=== PATIENT | male | born 1965 | race Caucasian/White ===

== ENCOUNTER 2018-06-08 22:05 | Emergency (ER) | payer MEDICAID ==
[~2018-06-08] VITALS: Ht 182.9 cm; Wt 81.7 kg
[~2018-06-08 22:05] MED LIST: ACETAMINOPHEN-120 ML PO; AVELOX ABC PAC400 MG PO; BACTRIM DS TAB1 EACH PO; HYDROCODON-ACE1 EAC7 PO; NOHOMEMEDICATIONS; NORCO 5-325 TA1 EACH PO; PROAIR HFA8.5 GM IH; TRIAMCINOLONE A80 G2 TOP; ZPAK PO
[2018-06-08 22:11] VITALS: BP 125/82
[2018-06-08] MEDS ORDERED: LIDOCAINE VISC100 ML SWISH&SPIT (22:16)
[2018-06-08] MEDS ORDERED: CLEOCIN HCL150 MG PO (22:16)
[2018-06-08] MEDS ORDERED: ACETAMINOPHEN-1 EAC1 PO (22:16)
== END 2018-06-08 22:27 | disposition home or self-care (01) ==
LOC: M.ERS 22:05
DX: K04.7 Periapical abscess without sinus (principal); F17.210 Nicotine dependence, cigarettes, uncomplicated; Z88.0 Allergy status to penicillin

== ENCOUNTER 2018-07-11 00:30 | Emergency (ER) | payer MEDICAID ==
[~2018-07-11] VITALS: Ht 182.9 cm; Wt 81.7 kg
[~2018-07-11 00:30] MED LIST changes: +ACETAMINOPHEN-1 EAC1 PO; +CLEOCIN HCL150 MG PO; +LIDOCAINE VISC100 ML SWISH&SPIT
[2018-07-11] MEDS ORDERED: DELTASONE20 MG PO (01:12)
[2018-07-11] MEDS ORDERED: VENTOLIN HFA 1818 GM INH (01:12)
[2018-07-11 01:23] VITALS: BP 132/58
== END 2018-07-11 01:23 | disposition home or self-care (01) ==
LOC: M.ERS 00:30
DX: S20.212A Contusion of left front wall of thorax, initial encounter (principal); J40 Bronchitis, not specified as acute or chronic; F17.210 Nicotine dependence, cigarettes, uncomplicated; Z88.0 Allergy status to penicillin; X50.9XXA Other and unspecified overexertion or strenuous movements or postures, initial encounter; Y93.89 Activity, other specified; Y92.89 Other specified places as the place of occurrence of the external cause; Y99.8 Other external cause status

== ENCOUNTER 2018-10-19 22:32 | Emergency (ER) | payer MEDICAID ==
[~2018-10-19] VITALS: Ht 182.9 cm; Wt 81.7 kg
[~2018-10-19 22:32] MED LIST changes: +DELTASONE20 MG PO; +VENTOLIN HFA 1818 GM INH
[2018-10-19 22:39] VITALS: BP 136/96
[2018-10-19] MEDS ORDERED: EYE DROPS (22:43)
[2018-10-19] MEDS ORDERED: BACTRIM DS TAB1 EACH PO (22:47)
[2018-10-19] MEDS ORDERED: TRAMADOL 50 MG50 MG PO (22:47)
== END 2018-10-19 23:05 | disposition home or self-care (01) ==
LOC: M.ERS 22:32
DX: L02.414 Cutaneous abscess of left upper limb (principal); Z88.0 Allergy status to penicillin

== ENCOUNTER 2019-03-01 15:27 | Emergency (ER) | payer OTHER, MEDICAID ==
[~2019-03-01] VITALS: Ht 182.9 cm; Wt 90.7 kg
[~2019-03-01 15:27] MED LIST changes: +EYE DROPS; +TRAMADOL 50 MG50 MG PO
[2019-03-01] MEDS ORDERED: TESSALON PERLE100 MG PO (16:29)
[2019-03-01] MEDS ORDERED: PROAIR HFA8.5 GM INH (16:29)
[2019-03-01] MEDS ORDERED: TYLENOL WITH CO1 TA1 PO (16:29)
[2019-03-01] MEDS ORDERED: MEDROLDOSEPACK PO (16:49)
[2019-03-01 17:07] VITALS: BP 142/93
== END 2019-03-01 17:08 | disposition home or self-care (01) ==
LOC: M.ERS 15:27
DX: J20.9 Acute bronchitis, unspecified (principal); M25.562 Pain in left knee; R07.81 Pleurodynia; Z88.0 Allergy status to penicillin

== ENCOUNTER 2019-05-24 00:21 | Inpatient (IN) | payer MEDICAID ==
[~2019-05-24] VITALS: Ht 182.9 cm; Wt 81.6 kg
[~2019-05-24 00:21] MED LIST changes: +MEDROLDOSEPACK PO; +PROAIR HFA8.5 GM INH; +TESSALON PERLE100 MG PO; +TYLENOL WITH CO1 TA1 PO
[2019-05-24 00:29] VITALS: BP 130/85
[2019-05-24 01:06] LABS: HEMATOCRIT 52.9 % (42.0-52.0); MCH 30.9 pg (26.0-34.0); MCV 90.9 fL (80.0-100.0); MPV 8.5 fl. (7.2-11.1); NUCLEATED RBCS 0 /100WBC; PLATELET COUNT* 247 thou/uL (150-400); RBC 5.82 mil/uL (4.50-6.00); WBC 16.1 thou/uL (4.0-11.0)
[2019-05-24 01:17] LABS: POTASSIUM 3.9 mmol/L (3.5-5.1)
[2019-05-24 01:22] LABS: ALBUMIN 3.6 g/dL (3.4-5.0); TOTAL BILIRUBIN 0.6 mg/dL (<0.1-1.0); TOTAL PROTEIN 7.5 g/dL (6.4-8.2)
[2019-05-24 01:27] LABS: INFLUENZA A ANTIGEN Negative (Negative); INFLUENZA B ANTIGEN Negative (Negative)
[2019-05-24 02:16] LABS: ABSOLUTE LYMPHOCYTES 0.5 thou/uL (0.8-5.3); ABSOLUTE MONOCYTES 0.6 thou/uL (0.0-1.2); PLATELET ESTIMATE ADEQUATE
[2019-05-24 02:39] LABS: URINE BILIRUBIN NEGATIVE (Negative); URINE BLOOD TRACE (Negative); URINE CLARITY CLEAR; URINE COLOR YELLOW; URINE GLUCOSE-RANDOM NEGATIVE (Negative); URINE KETONES NEGATIVE (Negative); URINE LEUKOCYTES-REFLEX NEGATIVE (Negative); URINE NITRITE-REFLEX NEGATIVE (Negative); URINE PROTEIN NEGATIVE (Negative); URINE SPECIFIC GRAVITY <= 1.005 (1.005-1.030); URINE UROBILINOGEN 0.2 E.U./dl (0.2-1.0)
[2019-05-24 05:25] VITALS: BP 155/95
[2019-05-24 09:41] LABS: ABSOLUTE LYMPHOCYTES 0.7 thou/uL (0.8-5.3); ABSOLUTE MONOCYTES 0.3 thou/uL (0.0-1.2); ABSOLUTE NEUTROPHILS 11.1 thou/uL (1.6-8.1); BASOPHILS 0.3 %; EOSINOPHILS 0.3 %; HEMATOCRIT 44.7 % (42.0-52.0); LYMPHOCYTES 5.6 %; MCHC 33.7 g/dL (28.0-37.0); MCV 91.9 fL (80.0-100.0); MONOCYTES 2.8 %; MPV 8.1 fl. (7.2-11.1); NUCLEATED RBCS 0 /100WBC; PLATELET COUNT* 182 thou/uL (150-400); RBC 4.87 mil/uL (4.50-6.00); RDW-CV 13.8 % (10.5-14.5); WBC 12.2 thou/uL (4.0-11.0)
[2019-05-24 09:42] LABS: HEMOGLOBIN 15.1 gm/dL (14.0-18.0)
[2019-05-24 09:58] LABS: ALBUMIN 2.7 g/dL (3.4-5.0); ALKALINE PHOSPHATASE 58 U/L (46-116); ANION GAP 7 mmol/L (7-16); BUN 23 mg/dL (7-18); CALCIUM 6.8 mg/dL (8.5-10.1); CHLORIDE 107 mmol/L (98-107); CO2 27 mmol/L (21-32); CREATININE 1.1 mg/dL (0.6-1.3); GLUCOSE 136 mg/dL (70-99); POTASSIUM 4.4 mmol/L (3.5-5.1); SGOT 12 U/L (15-37); SGPT 13 U/L (30-65); SODIUM 141 mmol/L (136-145); TOTAL BILIRUBIN 0.4 mg/dL (<0.1-1.0); TOTAL PROTEIN 5.8 g/dL (6.4-8.2); TROPONIN-I LEVEL <0.06 ng/mL (<0.06)
--- NOTE | 2019-05-24 13:57 | EKG ---
[place] [address] ELECTROCARDIOGRAM REPORT Name: YARELIS WHALEY Room: [place] [address] ADM IN M.R.#: [id number] Admission: 05/24/19 Attend Phys: Buddy Mills Discharge: Date of : 67 Date of Service: 05/24/19 0039 Report #: [id number] THIS REPORT FOR: cc: FAM - No family physician/PCP FAM - No family physician/PCP Lucius Urbina MD [facility] THIS REPORT FOR: //name// [facility] ED Test Date: 2019-05-24 Test Time: 00:39:35 Pat Name: YARELIS WHALEY Department: Room: [facility] Gender: M Cosmetics Presser: : 1965 Requested By: Aaron Blair Order Number: [id number] MD: Lucius Urbina Measurements Intervals [place] Rate: 129 P: 83 CT: 138 QRS: 202 QRSD: 101 T: 50 QT: 325 QTc: 477 Interpretive Statements Sinus tachycardia Low voltage with right axis deviation Abnormal R-wave progression, late transition Borderline prolonged QT interval Baseline wander in lead(s) I,III,aVL,V1,V2 No previous ECG available for comparison Electronically Signed On 05-24-2019 10:03:05 FURNACE KEEPER by Lucius Urbina [email or web address] <ELECTRONICALLY SIGNED> By: Lucius Urbina MD, [facility] 05/24/19 1003 0039 0039 Lucius Urbina MD, [facility] /EPI
[2019-05-24 14:52] VITALS: BP 129/79
[2019-05-24 16:10] VITALS: BP 105/74
--- NOTE | 2019-05-24 16:38 | NUR ---
PT ADMITTED TO ROOM 105 AROUND 1430 THIS AFTERNOON. PT REPORTS GROIN PAIN AND GIVEN PRN IV FENTANYL AND REPORTS RELIEF. NG CONTINUES TO LIS. DR. GODFREY AT BEDSIDE AND VERBAL ORDER GIVEN FOR OK TO GIVE ICE CHIPS SPARINGLY. NEW ORDER FOR NICOTINE PATCH OBTAINED D/T PT PPD SMOKER. NO OTHER CONCERNS AT THIS TIME. CLWR. WCTM.
[2019-05-24 20:20] VITALS: BP 118/75
[2019-05-25] VITALS: BP 129/85
[2019-05-25 04:00] VITALS: BP 116/82
--- NOTE | 2019-05-25 06:48 | NUR ---
PT A&O X 4, ON 2.5L BY NC. PAIN MANAGED WITH FENTANYL AND SCHEDULED TORADOL. GUTIERREZ IN PLACE. IVF RUNNING ORDERED. NPO EXCEPT ICECHIPS. HOURLY ROUNDING COMPLETED. WILL CONTINUE TO MONITOR.
[2019-05-25 08:39] VITALS: BP 122/83
--- NOTE | 2019-05-25 15:26 | NUR ---
PT PROGRESSING TOWARDS GOALS THIS SHIFT. GUTIERREZ DC'D. TITRATED OXYGEN TO RA. PT REPORTS HAVE A COUPLE OF BOWEL MOVEMENTS. NG CLAMPED AND PT GIVEN SIPS OF LIQUIDS. PT TOLERATED AND ADVANCED TO CLEAR LIQUID. IF PT CONTINUES TO TOLERATE, NG WILL BE DC'D THIS EVENING. PAIN MANAGED WELL WITH SCHEDULED TORADOL AND OCCASIONAL PRN DOSE FENTANYL. NO OTHER CONCERNS AT THIS TIME. CLWR. WCTM.
--- NOTE | 2019-05-25 15:31 | OP ---
[facility] [address] [place] [address] OPERATIVE REPORT Name: YARELIS WHALEY Room: [address] IN M.R.#: [id number] Admission: 05/24/19 Attend Phys: Alec Carmona Discharge: Date of : 67 Report #: [id number] THIS REPORT FOR: //name// cc: DEJA Grover family physician/PCP DEJA Grover family physician/PCP ~ THIS REPORT FOR: //name// CC: DEJA physician/PCP Buddy Mills DATE OF SERVICE: 05/24/2019 SURGEON: Buddy Mills DO ETL INFORMATICA DEVELOPER DOCTOR: Dr. Isac Knutson PREOPERATIVE DIAGNOSES: Incarcerated right femoral hernia, small bowel obstruction. POSTOPERATIVE DIAGNOSES: Incarcerated right femoral hernia, small bowel obstruction. PROCEDURE: Open right femoral hernia repair with mesh, diagnostic laparoscopy. INDICATIONS: The patient is a 53-year-old male who presented to the Emergency Department with nausea, vomiting, and abdominal pain. History of present illness and CT imaging were consistent with a small bowel obstruction secondary to an incarcerated right femoral hernia. The patient was tachycardic with a leukocytosis so he was emergently consented for the operating room. Risks and benefits of surgery were discussed in detail. Risks of bleeding, infection, and damage to nearby structures were explained in detail to the patient and the patient's mother at bedside. He agreed to proceed with the operation. DESCRIPTION OF PROCEDURE: The patient was taken to the operating theater and placed in the supine position. Bilateral SCDs were placed and preoperative antibiotics were given. The patient's abdomen and right groin were prepped and draped in the standard sterile fashion. The right groin incision was then made. This was a 4 cm incision, 1 cm below the inguinal ligament, in an oblique fashion. The subcutaneous tissue was then dissected using electrocautery. There was one superficial vein that was ligated using 3-0 silk sutures. We continued to dissect down until the inferior edge of the external oblique fibers were appreciated. The external oblique fibers were then [place] [address] OPERATIVE REPORT Name: YARELIS WHALEY Room: [address] IN M.R.#: [id number] Admission: 05/24/19 Attend Phys: Alec Carmona Discharge: Date of : 67 Report #: [id number] external ring could be appreciated and the spermatic cord could be seen coursing towards the scrotum. We began dissecting lateral to the spermatic cord and inferior to the lateral border of the external oblique muscle. The subcutaneous tissue over the femoral vein was dissected until the femoral vein and femoral canal were clearly appreciated. Just medial to the vein was a small fascial defect with protruding preperitoneal fat. The preperitoneal fat was dissected circumferentially bluntly and using electrocautery and then reduced. There was no bowel in the femoral hernia. Next, we went to the abdomen for a diagnostic laparoscopy. A supraumbilical incision was made with an 11 blade scalpel. Dissection to the midline fascia was carried out using S retractors. Once the midline fascia was appreciated, it was incised using electrocautery and elevated with Charlene clamps. The peritoneum was entered bluntly using a hemostat. Next, the Paulie trocar was introduced into the abdomen. The abdomen was insufflated and the camera was introduced. On first inspection of the abdomen, there was no injury to intra-abdominal contents with entry and the small bowel appeared very dilated. Next, a 5 mm trocar was inserted one handbreadth away from the umbilicus in the left lower quadrant and a blunt atraumatic grasper was used to find the terminal ileum. This was run from distal to proximal and a transition point was appreciated. This is the area that had been previously incarcerated in the femoral defect. All the visible intestines appeared healthy and viable. The transition point was healthy and viable. The proximal bowel was dilated, but did not appear to have any areas of necrosis. The myopectineal orifice was visualized. There was a small right femoral defect and what appeared to be a small direct defect. The trocar was then removed under direct visualization and the Paulie trocar was removed. The abdomen was desufflated and midline fascia was closed using a 0 Vicryl in a figure-of-8 fashion. Next, a PerFix medium sized plug was used in the femoral defect. The outer leaflet of the plug was used and placed within the femoral canal. This was sutured to the surrounding fascia, the inguinal ligament and Edmond's ligament using 2-0 Prolene suture. Next, the wound was inspected and appeared hemostatic. The Jared fascia was then closed using 3-0 interrupted Vicryl. Subdermal stitches were then placed using 3-0 interrupted Vicryl sutures. The skin was closed using a 4-0 Monocryl in a running fashion. The port sites were also closed using 4-0 Monocryl in an interrupted fashion. All incisions were dressed with Dermabond. This concluded the procedure. All sponge, instrument and needle counts were correct x 2. ESTIMATED BLOOD LOSS: 5 mL ANESTHESIA: General endotracheal anesthesia. DRAINS: [place] [address] OPERATIVE REPORT Name: JUDDYARELIS PHILIPPE Room: [address] IN [facility]#: [id number] Admission: 05/24/19 Attend Phys: Alec Carmona Discharge: Date of : 67 Report #: [id number] SPECIMEN: None. FINDINGS: Dilated proximal small bowel with clear transition point, femoral defect right. DISPOSITION: The patient was extubated in the operating theater and taken to the PACU in stable condition. <ELECTRONICALLY SIGNED> By: Buddy Mills DO 05/25/19 1531 1033 [id number] Mills DO /nt
[2019-05-25 16:16] VITALS: BP 118/74
[2019-05-25 16:47] LABS: HEMATOCRIT 44.6 % (42.0-52.0); MCH 30.9 pg (26.0-34.0); MCHC 33.6 g/dL (28.0-37.0); MPV 8.5 fl. (7.2-11.1); RBC 4.85 mil/uL (4.50-6.00); RDW-CV 13.8 % (10.5-14.5); WBC 8.1 thou/uL (4.0-11.0)
[2019-05-25 17:06] LABS: ALBUMIN 2.7 g/dL (3.4-5.0); CALCIUM 7.5 mg/dL (8.5-10.1); CREATININE 0.8 mg/dL (0.6-1.3); MAGNESIUM 1.6 mg/dL (1.8-2.4); PHOSPHORUS* 2.4 mg/dL (2.5-4.9); POTASSIUM 3.9 mmol/L (3.5-5.1); TOTAL BILIRUBIN 0.4 mg/dL (<0.1-1.0); TOTAL PROTEIN 5.7 g/dL (6.4-8.2)
[2019-05-25 20:20] VITALS: BP 129/79
--- NOTE | 2019-05-26 04:37 | NUR ---
VSS ON RA. PT WELL TOLERATING CLEAR LIQUIDS. PAIN MANAGED WITH FENTANYL X1 AND SCHEDULED TORADOL. HOURLY ROUNDING COMPLETED. NO OTHER CONCERNS AT THIS TIME. WILL CONTINUE TO MONITOR.
[2019-05-26 08:15] VITALS: BP 145/93
[2019-05-26 11:39] LABS: HEMATOCRIT 44.7 % (42.0-52.0); HEMOGLOBIN 15.2 gm/dL (14.0-18.0); MCV 91.1 fL (80.0-100.0); MPV 7.8 fl. (7.2-11.1); RBC 4.9 mil/uL (4.50-6.00); RDW-CV 13.7 % (10.5-14.5); WBC 7.3 thou/uL (4.0-11.0)
[2019-05-26 11:50] LABS: CALCIUM 8.2 mg/dL (8.5-10.1); CREATININE 0.8 mg/dL (0.6-1.3); MAGNESIUM 1.7 mg/dL (1.8-2.4); PHOSPHORUS* 3.7 mg/dL (2.5-4.9); POTASSIUM 4.1 mmol/L (3.5-5.1)
[2019-05-26 16:00] VITALS: BP 142/93
--- NOTE | 2019-05-26 16:00 | NUR ---
PT.UP IN ROOM. GAIT STEADY. STATED HE LIVES WITH HIS MOM,KIANA XIE. HE DOES NOT USE ANY DME. NO HX OF HH. STATED HE SHOULD NOT HAVE ANY DISCHARGE NEEDS.
--- NOTE | 2019-05-26 17:02 | NUR ---
PATIENT ALERT AND ORIENTED X 4. VITAL SIGNS STABLE ON ROOM AIR. AFEBRILE. UP INDEPENDENTLY IN ROOM AND AMBULATING IN THE HALLWAY. IV PATENT AND SALINE LOCKED. DENIES NAUSEA AT THIS TIME. PAIN BEING MANAGED WITH PO MEDICATION. INCISION TO RIGHT GROIN CLEAN/DRY/INTACT. HOURLY ROUNDS MAINTAINED THROUGHOUT THE SHIFT. CALL LIGHT WITHIN REACH. NURSING WILL CONTINUE TO MONITOR.
[2019-05-26 20:15] VITALS: BP 127/61; BP 145/92
--- NOTE | 2019-05-27 04:57 | NUR ---
VSS ON RA. PAIN MANAGED WITH MORPHINE PER PT REQUEST. NO N/V. SLEEPING THROUGHTOUT MOST OF THE NIGHT. HOURLY ROUNDING COMPLETED. WILL CONTINUE TO MONITOR.
[2019-05-27 08:00] VITALS: BP 140/74
[2019-05-27] MEDS ORDERED: OXYCODONE HCL5 MG PO (16:50)
[2019-05-27] MEDS ORDERED: TYLENOL EXTRA500 MG PO (16:51)
[2019-05-27 16:53] VITALS: BP 140/74
== END 2019-05-27 18:00 | disposition home or self-care (01) | DRG 350 ==
LOC: M.SUR 00:21 → M.ERS 00:21 → M.SUR 05:25 → M.ERS 05:25 → M.ORTHSURG 09:05 → M.TBA 09:05 → M.ORTHSURG 14:20
PROVIDERS: Family Medicine; ADMIT Surgery
PROC: 0YU70JZ Supplement Right Femoral Region with Synthetic Substitute, Open Approach (ICD-10-PCS; principal; 2019-05-24)
DX: K41.30 Unilateral femoral hernia, with obstruction, without gangrene, not specified as recurrent (principal); J18.9 Pneumonia, unspecified organism; F17.210 Nicotine dependence, cigarettes, uncomplicated; Z79.899 Other long term (current) drug therapy; Z79.51 Long term (current) use of inhaled steroids; Z88.0 Allergy status to penicillin

== ENCOUNTER 2019-06-05 13:03 | Inpatient (IN) | payer MEDICAID ==
[~2019-06-05] VITALS: Ht 180.3 cm; Wt 89.8 kg
[~2019-06-05 13:03] MED LIST changes: +OXYCODONE HCL5 MG PO; +TYLENOL EXTRA500 MG PO
[2019-06-05 13:34] VITALS: BP 133/84
[2019-06-05 15:22] LABS: ABSOLUTE BASOPHILS 0.1 thou/uL (0.0-0.2); ABSOLUTE EOSINOPHILS 0.3 thou/uL (0.0-0.7); ABSOLUTE LYMPHOCYTES 2.5 thou/uL (0.8-5.3); ABSOLUTE NEUTROPHILS 12.2 thou/uL (1.6-8.1); BASOPHILS 0.5 %; HEMATOCRIT 34.5 % (42.0-52.0); HEMOGLOBIN 11.3 gm/dL (14.0-18.0); LYMPHOCYTES 15.3 %; MCH 29.9 pg (26.0-34.0); MCHC 32.8 g/dL (28.0-37.0); MCV 91.3 fL (80.0-100.0); MONOCYTES 6.3 %; MPV 7.8 fl. (7.2-11.1); NUCLEATED RBCS 0 /100WBC; PLATELET COUNT* 350 thou/uL (150-400); POLYS 75.9 %; RBC 3.78 mil/uL (4.50-6.00); RDW-CV 14.1 % (10.5-14.5); WBC 16.1 thou/uL (4.0-11.0)
[2019-06-05 15:35] LABS: ALBUMIN 2.1 g/dL (3.4-5.0); CALCIUM 8.5 mg/dL (8.5-10.1); CREATININE 0.6 mg/dL (0.6-1.3); POTASSIUM 3.5 mmol/L (3.5-5.1); TOTAL BILIRUBIN 0.3 mg/dL (<0.1-1.0); TOTAL PROTEIN 6.1 g/dL (6.4-8.2)
--- NOTE | 2019-06-05 17:02 | NUR ---
PT ARRIVED DA ABOUT 1420. A&Ox4. IV PLACED BY ULTRASOUND IN R FA AND L FA. NPO UNTIL CT RESULTS ARRIVE. INCISION ON R GROIN MADE BY IN HIS OFFICE. SURGICAL SITE WAS DRAINED AND PACKED, DRESSING C/D/I. UP AD ADONIS. PAIN CONTROLLED WITH MORPHINE. DENIED NAUSEA. CALL LIGHT WITHIN REACH. WILL CONTINUE TO MONITOR.
[2019-06-05 20:46] VITALS: BP 113/74
--- NOTE | 2019-06-06 04:46 | NUR ---
ASSUMED CARE OF PT 06/05/19 AT APPROX 1930, PT A&OX4, PT ON ROOM AIR, VSS, IV FLUIDS INFUSING ORDERED, PAIN MEDS REQUESTED AND GIVEN ORDERED. ASSESSMENTS AND HOURLY ROUNDINGS COMPLETED, WILL CONTINUE TO MONITOR.
[2019-06-06 07:04] LABS: HEMOGLOBIN 11.6 gm/dL (14.0-18.0); MCH 30.3 pg (26.0-34.0); MCHC 33.1 g/dL (28.0-37.0); MCV 91.6 fL (80.0-100.0); MPV 8.5 fl. (7.2-11.1); RBC 3.82 mil/uL (4.50-6.00); RDW-CV 14.2 % (10.5-14.5); WBC 14.1 thou/uL (4.0-11.0)
[2019-06-06 07:13] LABS: CALCIUM 8.7 mg/dL (8.5-10.1); CREATININE 0.6 mg/dL (0.6-1.3); MAGNESIUM 1.8 mg/dL (1.8-2.4); PHOSPHORUS* 3.6 mg/dL (2.5-4.9); POTASSIUM 3.7 mmol/L (3.5-5.1)
[2019-06-06 08:10] VITALS: BP 138/95
--- NOTE | 2019-06-06 14:46 | NUR ---
CM ASSESSMENT: PT LIVES WITH HIS MOTHER. HE IS INDEPENDENT WITH ADLS. HE DOES NOT HAVE DME OR HH NEEDS. CM WILL CONTINUE TO FOLLOW IF NEEDED
--- NOTE | 2019-06-06 15:58 | NUR ---
PT A&Ox4. VITALS STABLE. IV PATENT, INFUSING. PAIN PARTIALLY CONTROLLED. UP AD ADONIS. DENIED NAUSEA. TOLERATING DIET. CALL LIGHT WITHIN REACH. WILL CONTINUE TO MONITOR.
[2019-06-06 16:00] VITALS: BP 146/52
[2019-06-06 21:00] VITALS: BP 144/96
[2019-06-07] VITALS: BP 150/95
[2019-06-07 04:00] VITALS: BP 128/83
[2019-06-07 05:04] LABS: HEMATOCRIT 35.1 % (42.0-52.0); HEMOGLOBIN 11.9 gm/dL (14.0-18.0); MCH 30.8 pg (26.0-34.0); MCHC 33.8 g/dL (28.0-37.0); MCV 91.1 fL (80.0-100.0); MPV 7.8 fl. (7.2-11.1); RBC 3.86 mil/uL (4.50-6.00); RDW-CV 14.1 % (10.5-14.5); WBC 9.9 thou/uL (4.0-11.0)
--- NOTE | 2019-06-07 05:08 | NUR ---
PATIENT HAS REMAINED ALERT AND ORIENTED X 4 THROUGHOUT THE SHIFT AND RESTING QUIETLY ON HOURLY ROUNDS. UP INDEPENDENTLY IN THE ROOM. MEDICATED FOR PAIN X 2 OF THIS WRITING TO GOOD EFFECT. PACKING INTACT RIGHT GROIN WITH ABD TOPPER. HAVE NOT NEEDED TO CHANGE THIS SHIFT. WMP PROVIDED X 1. PATIENT COMPLIANT WITH BILAT SCD'S WHEN PLACED. NO VOIDING DIFFICULTIES. NO NAUSEA. VITAL SIGNS STABLE W/ HYPERTENSION. AFEBRILE. CONTINUE TO MONITOR.
[2019-06-07 05:50] LABS: CALCIUM 8.4 mg/dL (8.5-10.1); CREATININE 0.6 mg/dL (0.6-1.3); MAGNESIUM 1.9 mg/dL (1.8-2.4); PHOSPHORUS* 4.1 mg/dL (2.5-4.9); POTASSIUM 3.8 mmol/L (3.5-5.1)
[2019-06-07 09:15] VITALS: BP 126/83
[2019-06-07 16:32] VITALS: BP 134/89
[2019-06-07 16:35] LABS: AMP/METHAMP Negative (Negative); BARBITURATES Negative (Negative); BENZODIAZEPINES Negative (Negative); COCAINE Negative (Negative); METHADONE Negative (Negative); OPIATES POSITIVE (Negative); PCP Negative (Negative); THC Negative (Negative)
--- NOTE | 2019-06-07 18:55 | NUR ---
PATIENT ALERT AND ORIENTED THRU SHIFT. SEE MAR. DRSG TO RT GROIN NOTED INTACT, SCANT OLD RED DRNG NOTED. IV FLUIDS INFUSING W/O DIFF. PATIENT PLEASANT AND COOPERATIVE W/ ASSESS AND CARES. HEMA SOLORIO DONE AND NEEDS MET. WARM COMPRESSES APPLIED TO GROIN SITE THRU SHIFT. ~TJRN
[2019-06-07 19:55] VITALS: BP 136/95
[2019-06-08 03:37] LABS: HEMATOCRIT 36.5 % (42.0-52.0); MCH 30.1 pg (26.0-34.0); MCHC 32.9 g/dL (28.0-37.0); MCV 91.7 fL (80.0-100.0); MPV 7.7 fl. (7.2-11.1); RBC 3.98 mil/uL (4.50-6.00); RDW-CV 14.1 % (10.5-14.5); WBC 9.5 thou/uL (4.0-11.0)
[2019-06-08 03:48] LABS: CALCIUM 8.2 mg/dL (8.5-10.1); CREATININE 0.6 mg/dL (0.6-1.3); POTASSIUM 4.2 mmol/L (3.5-5.1)
--- NOTE | 2019-06-08 05:22 | NUR ---
PATIENT HAS REMAINED ALERT AND ORIENTED X 4 THROUGHOUT THE SHIFT AND RESTING QUIETLY ON HOURLY ROUNDS. UP INDEPENDENTLY TO THE BR. PATIENT REPORTS NO DIFFICULTY VOIDING. PATIENT DECLINING TO USE URINAL NOW AND THREW IT IN THE TRAASH. MEDICATED FOR PAIN X 3 THIS SHIFT OF THIS WRITING. DRESSING GAUZE TOPPERS CHANGED X 2 RIGHT GROIN. REDDNESS/SWELLING HAS STAYED WITHIN THE INKED PARAMETER. IVF'S AND ANTIBIOTICS PER ORDER. PATIENT REFUSING LOVENOX. WEARING SCD'S. NO FEVERS. CONTINUE TO MONITOR.
[2019-06-08 05:42] VITALS: BP 137/85
[2019-06-08 07:40] VITALS: BP 126/90
[2019-06-08 16:06] VITALS: BP 133/78
--- NOTE | 2019-06-08 19:00 | NUR ---
PATIENT PLEASANT AND COOPERATIVE THRU SHIFT. C/O NAUSEA THIS AFTERNOON, STATES NOT EATING WELL AT MEALS. PATIENT ENC TO AMBULATE IN HALLS. STATES PASSING GAS AND HAVING BM. ZOFRAN AND SIMETHICONE GIVEN, SEE MAR. PATIENT DENIES PAIN, SEE MAR. ABD NOTED DISTENDED, FIRM. IV SITE NOTED WNL. PRESENT THRU SHIFT AT BEDSIDE. CALL LIGHT IN REACH. ~TJRN
--- NOTE | 2019-06-08 19:00 | NUR ---
PATIENT ALERT AND ORIENTED THRU SHIFT. SEE MAR FOR PAIN CONTROL. DRSG CHANGE DONE THIS AFTERNOON TO RT GROIN INC AREA. PERIWOUND SKIN NOTED WARM, FIRM AND REDDENED. WOUND SITE PACKED W/ IODOFORM GAUZE 1/2" LOOSELY, GAUZE AND ABD TO COVER, FOAM TAPE TO KEEP IN PLACE. PATIENT UP TO SHOWER TODAY. IV FLUIDS INFUSING W/O DIFF. SCDs ON BLE WHILE IN BED. CALL LIGHT IN REACH. HRLY ROUNDS DONE. ~TJRN
[2019-06-08 20:00] VITALS: BP 144/87
[2019-06-09 03:00] VITALS: BP 133/88
[2019-06-09 03:16] LABS: HEMATOCRIT 36.2 % (42.0-52.0); MCH 30.4 pg (26.0-34.0); MCV 91.9 fL (80.0-100.0); MPV 7.6 fl. (7.2-11.1); RBC 3.94 mil/uL (4.50-6.00); RDW-CV 14.7 % (10.5-14.5); WBC 9.4 thou/uL (4.0-11.0)
[2019-06-09 03:55] LABS: CALCIUM 8.3 mg/dL (8.5-10.1); CREATININE 0.7 mg/dL (0.6-1.3); MAGNESIUM 1.9 mg/dL (1.8-2.4); PHOSPHORUS* 4.1 mg/dL (2.5-4.9)
--- NOTE | 2019-06-09 06:12 | NUR ---
Alert and oriented x 4. Up independently to the bathroom but needs assist with SCD's. Rt groin drsg is dry and intact. Vitals are stable. He has had pain meds x 3. He is voiding adequately but not in the urinal so we could measure output. He has slept intermittenly.
[2019-06-09 09:15] VITALS: BP 141/85
[2019-06-09 16:00] VITALS: BP 126/82
--- NOTE | 2019-06-09 16:56 | NUR ---
IF DISCHARGED AND NEEDS HOME HEALTH FOR DRESSING CHANGES HE WOULD LIKE TO USE [facility]. WILL NEED SPECIFIC DRESSING CHANGE AND PACKING ORDERS IF NEEDED. NEED TO NOTIFY [facility] AT [phone] AND FAX FACE SHEET/ORDERS AND DISCHARGE SUMMARY TO [phone].
[2019-06-09 16:58] VITALS: BP 141/85
--- NOTE | 2019-06-09 19:00 | NUR ---
PATIENT PLEASANT AND COOPERATIVE W/ ASSESS AND CARES. AMBULATING IN HALLS W/ STEADY GAIT. SEE MAR. ~TJRN
[2019-06-09 20:31] VITALS: BP 129/78
--- NOTE | 2019-06-10 05:27 | NUR ---
MODERATE RIGHT GROION PAIN THROUGH SHIFT. GAVE 2 DOSES 4MG MORPHINE FOR PAIN. HE WAS ABLE TO SLEEP WELL GAVE BENADRYL TO HELP. DRESSING ON GROIN IS INTACT. PLAN IS FOR MORE IV ABX. PATIENT UP AD ADONIS. RECEIVED ALL ABX SCHEDULED. CURRECT VANC TROUGH IS AT 11. WILL CONTINUE TO MONITOR.
[2019-06-10 08:07] VITALS: BP 123/56
--- NOTE | 2019-06-10 17:02 | NUR ---
PT A&Ox4. VITALS STABLE. IV PATENT. UP AD ADONIS. PAIN PARTIALLY CONTROLLED. DRESSING CHANGED BY SURGERY. TOLERATING DIET. CALL LIGHT WITHIN REACH. WILL CONTINUE TO MONITOR.
[2019-06-10 19:30] VITALS: BP 137/87
--- NOTE | 2019-06-11 04:40 | NUR ---
PATIENT HAS REMAINED ALERT AND ORIENTED X 4 THOROUGHOUT THE SHIFT AND RESTING QUIETLY ON HOURLY ROUNDS. MEDICATED X 3 FOR PAIN OF THIS WRITING. WMP ALSO PROVIDED X 2. RIGHT GROIN DRESSING DRY. VITAL SIGNS STABLE. NO BM'S THIS SHIFT. VOIDS WITHOUT PROBLEM IN ADEQUATE AMOUNTS. ANTIBIOTICS PER ORDER. CONTINUE TO MONITOR.
[2019-06-11 05:30] VITALS: BP 123/86
[2019-06-11 08:02] VITALS: BP 139/92
--- NOTE | 2019-06-11 17:12 | NUR ---
PT A&Ox4. VITALS STABLE. UP AD ADONIS. DRESSING CHANGED BY CARPET CLEANING TECHNICIAN. OXY IR AND TYLENOL GIVEN FOR PAIN. IV PATENT. TOLERATING DIET. CALL LIGHT WITHIN REACH. WILL CONTINUE TO MONITOR.
[2019-06-11 20:15] VITALS: BP 135/80
[2019-06-12] VITALS: BP 122/72
[2019-06-12 04:00] VITALS: BP 141/94
--- NOTE | 2019-06-12 05:35 | NUR ---
PATIENT HAS REMAINED ALERT AND ORIENTED X 4 THROUGHOUT THE SHIFT AND RESTING QUIETLY ON HOURLY ROUNDS. MEDICATED X 1 FOR PAIN. DRESSING RIGHT GROIN CHANGED X 2 GAUZE FELL OUT DURING BR ROUTINES. VITAL SIGNS STABLE. INDEPENDENT IN ROOM. PATIENT VERBALIZING HE DOESN'T KNOW IF HE CAN CHANGE HIS DRESSINGS AT HOME. CONTINUE TO MONITOR.
[2019-06-12 08:15] VITALS: BP 147/99
--- NOTE | 2019-06-12 13:55 | NUR ---
Nutrition: Pt seen for LOS. Likely disch today. Admitted with surgical site infection. On ABX. Pt agreed to Martín packets for wound healing - RD ordered in case pt does not discharge today. Also, recommend MVI at home to aid in wound healing. Pt stated he was eating well, feeling better. Alb 2.1, prealb 12.4. Mild to low risk.
[2019-06-12] MEDS ORDERED: CLEOCIN HCL300 MG PO (16:17)
[2019-06-12 16:37] VITALS: BP 141/85
[2019-06-12 16:41] VITALS: BP 127/79
[2019-06-12 16:45] VITALS: BP 141/85
--- NOTE | 2019-06-12 16:50 | NUR ---
SW received consult and discussed with Dr Gallegos about a need for HH RN for dressing changes at dc. Pt to dc home with mother today. SW gathered needed information for pt choice of HH service and awaited orders then in the end, pt was not in need or wanting of HH RN as he said he will not be homebound and agreeable to OP wound care as outlined in pt dc summary. Pt nurse and SW discussed as well, now no need for arrangement of HH.
--- NOTE | 2019-06-12 17:25 | NUR ---
ASSUMED CARE AT 0730. ALERT ORIENTED PLEASANT COOPERATIVE. HX OF SURGICAL SITE INFECTION RT. GROIN. PACKING IN PLACE AND GUAZE DRESSING APPLIED AFTER SHOWER. SL L ARM FOR IV ANTIBIOTICS. MEDICATED X 1 FOR C/O RT. GROIN PAIN WITH RELIEF STATED. UP AD ADONIS. DISCHARGED AT 1730 WITH MOM STATES UNDERSTANDING OF D/C INSTRUCTIONS SCRIPT GIVEN SEEN BY DR. GODFREY.
== END 2019-06-12 17:25 | disposition home or self-care (01) | DRG 863 ==
LOC: M.ORTHSURG 13:03
PROVIDERS: Surgery; ADMIT Surgery
DX: T81.49XA Infection following a procedure, other surgical site, initial encounter (principal); D72.829 Elevated white blood cell count, unspecified; Y83.8 Other surgical procedures as the cause of abnormal reaction of the patient, or of later complication, without mention of misadventure at the time of the procedure; Y92.89 Other specified places as the place of occurrence of the external cause

== ENCOUNTER → 2019-06-14 | Outpatient (CLI) | payer MEDICAID ==
[~2019-06-14] MED LIST changes: +CLEOCIN HCL300 MG PO
== END ==
LOC: M.WC 08:00
DX: T81.31XD Disruption of external operation (surgical) wound, not elsewhere classified, subsequent encounter (principal); A49.02 Methicillin resistant Staphylococcus aureus infection, unspecified site; F17.200 Nicotine dependence, unspecified, uncomplicated; Z71.6 Tobacco abuse counseling; Y83.8 Other surgical procedures as the cause of abnormal reaction of the patient, or of later complication, without mention of misadventure at the time of the procedure

== ENCOUNTER → 2019-06-21 | Outpatient (CLI) | payer MEDICAID | LOC: M.WC 04:52 | DX: T81.31XD Disruption of external operation (surgical) wound, not elsewhere classified, subsequent encounter (principal); A49.02 Methicillin resistant Staphylococcus aureus infection, unspecified site; F17.200 Nicotine dependence, unspecified, uncomplicated; Z71.6 Tobacco abuse counseling; Y83.8 Other surgical procedures as the cause of abnormal reaction of the patient, or of later complication, without mention of misadventure at the time of the procedure ==

== ENCOUNTER → 2019-06-28 | Outpatient (CLI) | payer MEDICAID | LOC: M.WC 04:17 | DX: T81.31XD Disruption of external operation (surgical) wound, not elsewhere classified, subsequent encounter (principal); A49.02 Methicillin resistant Staphylococcus aureus infection, unspecified site; F17.200 Nicotine dependence, unspecified, uncomplicated; Z71.6 Tobacco abuse counseling; Y83.8 Other surgical procedures as the cause of abnormal reaction of the patient, or of later complication, without mention of misadventure at the time of the procedure ==

== ENCOUNTER 2020-08-05 23:06 | Observation (INO) | payer MEDICAID ==
[~2020-08-05] VITALS: Ht 182.9 cm; Wt 78.8 kg
[2020-08-05 23:15] VITALS: BP 146/91
[2020-08-06] VITALS (7 sets, daily range): BP systolic 111–144; BP diastolic 66–93
[2020-08-06 00:17] LABS: INFLUENZA A ANTIGEN Negative (Negative); INFLUENZA B ANTIGEN Negative (Negative)
[2020-08-06] MEDS ORDERED: PREDNISONE50 MG PO (01:30)
[2020-08-06] MEDS ORDERED: AZITHROMYCIN 2250 MG PO (01:30)
[2020-08-06] MEDS ORDERED: IPRAT-ALBUT 0.5-3 ML INH (01:30)
[2020-08-06] MEDS ORDERED: NEBULIZER MISCELL (01:30)
[2020-08-06 03:36] LABS: ABSOLUTE BASOPHILS 0.1 thou/uL (0.0-0.2); ABSOLUTE EOSINOPHILS 0.1 thou/uL (0.0-0.7); ABSOLUTE MONOCYTES 0.3 thou/uL (0.0-1.2); ABSOLUTE NEUTROPHILS 6.5 thou/uL (1.6-8.1); EOSINOPHILS 1.6 %; HEMATOCRIT 43.7 % (42.0-52.0); HEMOGLOBIN 14.6 gm/dL (14.0-18.0); LYMPHOCYTES 12.7 %; MCH 30.7 pg (26.0-34.0); MCHC 33.3 g/dL (28.0-37.0); MCV 92.2 fL (80.0-100.0); MONOCYTES 3.3 %; MPV 7.7 fl. (7.2-11.1); NUCLEATED RBCS 0 /100WBC; PLATELET COUNT* 198 thou/uL (150-400); POLYS 81.4 %; RBC 4.74 mil/uL (4.50-6.00); RDW-CV 14.2 % (10.5-14.5)
[2020-08-06 03:55] LABS: CALCIUM 7.9 mg/dL (8.5-10.1); CREATININE 0.6 mg/dL (0.6-1.3); POTASSIUM 3.7 mmol/L (3.5-5.1)
[2020-08-06 03:55] LABS: BE -0.6 mmol/L (-2 to +3); PCO2 41.6 mmHg (35.0-45.0); PO2 64.5 mmHg (75.0-100.0); pH 7.387 (7.340-7.450)
[2020-08-06 03:59] LABS: ALBUMIN 3.1 g/dL (3.4-5.0); MAGNESIUM 1.9 mg/dL (1.8-2.4); TOTAL BILIRUBIN 0.5 mg/dL (<0.1-1.0); TOTAL PROTEIN 6.2 g/dL (6.4-8.2)
--- NOTE | 2020-08-06 15:14 | EKG ---
[place] [address] ELECTROCARDIOGRAM REPORT Name: YARELIS WHALEY Room: [address] M.R.#: [id number] Admission: 08/06/20 Attend Phys: Glen Delcid Discharge: Date of : 67 Date of Service: 08/05/20 2339 Report #: [id number] THIS REPORT FOR: //name// [facility] ED Test Date: 2020-08-05 Test Time: 23:39:58 Pat Name: YARELIS WHALEY Department: Room: [place] [address] Gender: M Review Rn: MARU : 1965 Requested By: Glen Delcid Order Number: [id number] Reading MD: Theo Sanchez Measurements Intervals [place] Rate: 110 P: 85 MO: 182 QRS: 209 QRSD: 95 T: 67 QT: 341 QTc: 462 Interpretive Statements Sinus tachycardia Right atrial enlargement Consider right ventricular hypertrophy Baseline wander in lead(s) V6 Compared to ECG 05/24/2019 00:39:35 no change Electronically Signed On 08-06-2020 15:14:41 CDT by Theo Sanchez [email or web address] <ELECTRONICALLY SIGNED> By: Theo Sanchez MD, [facility] 08/06/20 1514 2339 2339 Theo Sanchez MD, [facility] /EPI
--- NOTE | 2020-08-06 16:38 | 2DMMODE ---
[place] [address] 2 D/M-MODE ECHOCARDIOGRAM Name: YARELIS WHALEY Room: [address] Yosvany Soliman#: [id number] Admission: 08/06/20 Attend Phys: Glen Delcid Discharge: Date of : 67 Date of Service: 08/06/20 1637 Report #: [id number] THIS REPORT FOR: cc: FAM - No family physician/PCP FAM - No family physician/PCP Carl Santiago MD [facility] ~ APPROVED REPORT Study performed: 08/06/2020 14:10:44 EXAM: Comprehensive 2D, Doppler, and color-flow Echocardiogram Patient Location: In-Patient Room #: er Status: routine BSA: 1.99 HR: 78 bpm BP: 133/93 mmHg Rhythm: NSR Other Information Study Quality: Good Indications Dyspnea 2D Dimensions IVSd: 11.34 (7-11mm) LVOT Diam: 20.21 (18-24mm) LVDd: 38.30 mm PWd: 11.03 (7-11mm) LVDs: 30.46 (25-40mm) Aortic Root: 35.51 mm Volumes Left Atrial Volume (Systole) LA ESV Index: 22.00 mL/m2 Aortic Valve AoV Peak Piotr.: 1.11 m/s AO Peak Gr.: 4.95 mmHg LVOT Max P.47 mmHg AO Mean Gr.: 2.96 mmHg LVOT Mean P.67 mmHg LVOT Max V: 0.93 m/s AO V2 VTI: 20.62 cm LVOT Mean V: 0.59 m/s SILKE (VTI): 2.85 cm2 LVOT V1 VTI: 18.29 [place] [address] 2 D/M-MODE ECHOCARDIOGRAM Name: YARELIS WHALEY Room: [address] Yosvany Soliman#: [id number] Admission: 08/06/20 Attend Phys: Glen Delcid Discharge: Date of : 67 Date of Service: 08/06/20 1637 Report #: [id number] Mitral Valve E/A Ratio: 0.82 MV Decel. Time: 244.49 ms MV E Max Piotr.: 0.50 m/s MV PHT: 70.90 ms MVA (PHT): 3.10 cm2 TDI E/Lateral E': 4.17 E/Medial E': 4.55 Medial E' Piotr.: 0.11 m/s Lateral E' Piotr.: 0.12 m/s Pulmonary Valve PV Peak Piotr.: 0.91 m/s PV Peak Gr.: 3.32 mmHg Tricuspid Valve RAP Estimate: 5.00 mmHg TR Peak Gr.: 31.06 mmHg RVSP: 36.00 mmHg PA Pressure: 36.00 mmHg Left Ventricle The left ventricle is normal size. There is normal LV segmental wall motion. There is normal left ventricular wall thickness. Left ventricular systolic function is normal. LVEF is 55-60%. Grade I - abnormal relaxation pattern. Right Ventricle The right ventricle is normal size. The right ventricular systolic function is normal. Atria The left atrium size is normal. The right atrium size is normal. Aortic Valve The aortic valve is normal in structure. No aortic regurgitation is present. There is no aortic valvular stenosis. Mitral Valve The mitral valve is normal in structure. Trace mitral regurgitation. No evidence of mitral valve stenosis. Tricuspid Valve The tricuspid valve is normal in structure. Mild tricuspid regurgitation. Mild pulmonary hypertension. The RVSP is 35-[place] [address] 2 D/M-MODE ECHOCARDIOGRAM Name: WHALEYYARELIS PAEZ Room: [address] Janny#: [id number] Admission: 08/06/20 Attend Phys: Glen Delcid Discharge: Date of : 67 Date of Service: 08/06/20 1637 Report #: [id number] Pulmonic Valve The pulmonary valve is normal in structure. There is no pulmonic valvular regurgitation. Great Vessels The aortic root is normal in size. IVC is normal in size and collapses >50% with inspiration. Pericardium There is no pericardial effusion. <Conclusion> The left ventricle is normal size. There is normal left ventricular wall thickness. Left ventricular systolic function is normal. LVEF is 55-60%. Grade I - abnormal relaxation pattern. Trace mitral regurgitation. Mild tricuspid regurgitation. Mild pulmonary hypertension. The RVSP is 35-40 mmHg. IVC is normal in size and collapses >50% with inspiration. <ELECTRONICALLY SIGNED> By: Carl Santiago MD, FACC 08/06/20 1637 1637 1637 Carl Santiago MD, FACC /INF
[2020-08-07 00:15] VITALS: BP 124/79
[2020-08-07 01:08] LABS: URINE BILIRUBIN NEGATIVE (Negative); URINE BLOOD NEGATIVE (Negative); URINE CLARITY CLEAR; URINE COLOR YELLOW; URINE GLUCOSE-RANDOM TRACE (Negative); URINE KETONES NEGATIVE (Negative); URINE LEUKOCYTES-REFLEX NEGATIVE (Negative); URINE NITRITE-REFLEX NEGATIVE (Negative); URINE PROTEIN NEGATIVE (Negative); URINE SPECIFIC GRAVITY 1.015 (1.005-1.030); URINE UROBILINOGEN 0.2 E.U./dl (0.2-1.0)
[2020-08-07 04:52] LABS: HEMATOCRIT 45.8 % (42.0-52.0); MCH 30.2 pg (26.0-34.0); MCHC 32.8 g/dL (28.0-37.0); MCV 92.1 fL (80.0-100.0); MPV 8.1 fl. (7.2-11.1); NUCLEATED RBCS 0 /100WBC; PLATELET COUNT* 228 thou/uL (150-400); RBC 4.98 mil/uL (4.50-6.00); RDW-CV 13.8 % (10.5-14.5); WBC 10.5 thou/uL (4.0-11.0)
[2020-08-07 05:08] LABS: ALBUMIN 3.3 g/dL (3.4-5.0); CALCIUM 8.6 mg/dL (8.5-10.1); CREATININE 0.8 mg/dL (0.6-1.3); POTASSIUM 4.3 mmol/L (3.5-5.1); TOTAL BILIRUBIN 0.4 mg/dL (<0.1-1.0); TOTAL PROTEIN 6.6 g/dL (6.4-8.2)
[2020-08-07 05:19] VITALS: BP 139/55
[2020-08-07 05:53] LABS: ABSOLUTE LYMPHOCYTES 1.6 thou/uL (0.8-5.3); ABSOLUTE MONOCYTES 0.2 thou/uL (0.0-1.2); ABSOLUTE NEUTROPHILS 8.7 thou/uL (1.6-8.1); ANISOCYTOSIS 1+; PLATELET ESTIMATE ADEQUATE; POIKILOCYTOSIS 1+
[2020-08-07 08:00] VITALS: BP 121/87
[2020-08-07] MEDS ORDERED: PROTONIX40 M2 PO (08:28)
[2020-08-07] MEDS ORDERED: PREDNISONE 10 M10 MG PO (08:28)
[2020-08-07] MEDS ORDERED: LEVOFLOXACIN750 MG PO (08:28)
[2020-08-07] MEDS ORDERED: PROAIR HFA8.5 GM INH (08:28)
[2020-08-07 11:46] VITALS: BP 121/87
[2020-08-07 12:02] VITALS: BP 133/81
== END 2020-08-07 13:00 | disposition home or self-care (01) ==
LOC: M.ERS 23:06 → M.TBA-ER 08-06 02:36 → M.2W 08-06 15:29
PROVIDERS: Internal Medicine; Personal Emergency Response Attendant; ADMIT Internal Medicine; ATTEND Internal Medicine
DX: J18.9 Pneumonia, unspecified organism (principal); Z20.822 Contact with and (suspected) exposure to COVID-19; J44.1 Chronic obstructive pulmonary disease with (acute) exacerbation; R00.0 Tachycardia, unspecified; F17.200 Nicotine dependence, unspecified, uncomplicated; Z79.899 Other long term (current) drug therapy

== ENCOUNTER 2020-10-18 16:45 | Emergency (ER) | payer MEDICAID ==
[~2020-10-18] VITALS: Ht 182.9 cm; Wt 77.1 kg
[~2020-10-18 16:45] MED LIST changes: +AZITHROMYCIN 2250 MG PO; +IPRAT-ALBUT 0.5-3 ML INH; +LEVOFLOXACIN750 MG PO; +NEBULIZER MISCELL; +PREDNISONE 10 M10 MG PO; +PREDNISONE50 MG PO; +PROTONIX40 M2 PO
[2020-10-18 16:53] VITALS: BP 125/78
[2020-10-18] MEDS ORDERED: VENTOLIN HFA 1818 GM INH (17:53)
[2020-10-18] MEDS ORDERED: PREDNISONE 20 M20 M1 PO (17:53)
[2020-10-18] MEDS ORDERED: ZPAK PO (17:53)
== END 2020-10-18 18:05 | disposition home or self-care (01) ==
LOC: M.ERS 16:45
DX: J44.1 Chronic obstructive pulmonary disease with (acute) exacerbation (principal); Z88.0 Allergy status to penicillin

== ENCOUNTER 2021-02-18 06:25 | Emergency (ER) | payer MEDICAID ==
[~2021-02-18] VITALS: Ht 182.9 cm; Wt 86.2 kg
[~2021-02-18 06:25] MED LIST changes: +PREDNISONE 20 M20 M1 PO
[2021-02-18] MEDS ORDERED: EYE DROPS (06:34)
[2021-02-18] MEDS ORDERED: PREDNISONE 20 M20 M1 PO (07:33)
[2021-02-18] MEDS ORDERED: DOXYCYCLINE 10100 MG PO (07:33)
[2021-02-18 07:57] VITALS: BP 148/98
== END 2021-02-18 07:59 | disposition home or self-care (01) ==
LOC: M.ERS 06:25
DX: J44.1 Chronic obstructive pulmonary disease with (acute) exacerbation (principal); Z20.822 Contact with and (suspected) exposure to COVID-19; F17.200 Nicotine dependence, unspecified, uncomplicated; Z79.899 Other long term (current) drug therapy; Z88.0 Allergy status to penicillin

== ENCOUNTER 2021-02-19 19:12 | Inpatient (IN) | payer MEDICAID ==
[~2021-02-19] VITALS: Ht 182.9 cm; Wt 85.7 kg
[~2021-02-19 19:12] MED LIST changes: +DOXYCYCLINE 10100 MG PO
[2021-02-19 19:28] VITALS: BP 163/90
[2021-02-19 20:24] LABS: ABSOLUTE BASOPHILS 0.1 thou/uL (0.0-0.2); ABSOLUTE NEUTROPHILS 13.4 thou/uL (1.6-8.1); BASOPHILS 0.6 %; HEMATOCRIT 47.6 % (42.0-52.0); HEMOGLOBIN 15.9 gm/dL (14.0-18.0); LYMPHOCYTES 11.9 %; MCH 30.2 pg (26.0-34.0); MCHC 33.5 g/dL (28.0-37.0); MCV 90.2 fL (80.0-100.0); MONOCYTES 6.2 %; MPV 7.4 fl. (7.2-11.1); NUCLEATED RBCS 0 /100WBC; PLATELET COUNT* 341 thou/uL (150-400); POLYS 81.3 %; RBC 5.28 mil/uL (4.50-6.00); WBC 16.5 thou/uL (4.0-11.0)
[2021-02-19 20:43] LABS: CALCIUM 8.7 mg/dL (8.5-10.1); CREATININE 0.9 mg/dL (0.6-1.3); POTASSIUM 4.3 mmol/L (3.5-5.1)
[2021-02-19 20:47] LABS: ALBUMIN 3.4 g/dL (3.4-5.0); MAGNESIUM 2.1 mg/dL (1.8-2.4); TOTAL BILIRUBIN 0.2 mg/dL (<0.1-1.0); TOTAL PROTEIN 6.7 g/dL (6.4-8.2)
[2021-02-19 22:01] LABS: INFLUENZA A ANTIGEN Negative (Negative); INFLUENZA B ANTIGEN Negative (Negative)
[2021-02-19 22:30] LABS: BE -0.3 mmol/L (-2 to +3); PCO2 47.7 mmHg (35.0-45.0); PO2 67.6 mmHg (75.0-100.0); pH 7.352 (7.340-7.450)
[2021-02-20] VITALS (8 sets, daily range): BP systolic 126–173; BP diastolic 81–94
[2021-02-20 00:09] LABS: URINE BILIRUBIN NEGATIVE (Negative); URINE BLOOD TRACE (Negative); URINE CLARITY CLEAR; URINE COLOR YELLOW; URINE GLUCOSE-RANDOM NEGATIVE (Negative); URINE KETONES NEGATIVE (Negative); URINE LEUKOCYTES-REFLEX NEGATIVE (Negative); URINE NITRITE-REFLEX NEGATIVE (Negative); URINE PROTEIN NEGATIVE (Negative); URINE SPECIFIC GRAVITY >= 1.030 (1.005-1.030); URINE UROBILINOGEN 0.2 E.U./dl (0.2-1.0)
--- NOTE | 2021-02-20 09:00 | NUR ---
CALF SCD'S PUT ON PT.
--- NOTE | 2021-02-20 09:06 | EKG ---
[place] [address] ELECTROCARDIOGRAM REPORT Name: YARELIS WHALEY Room: [address] M.R.#: [id number] Admission: 02/19/21 Attend Phys: Glen Delcid Discharge: Date of : 67 Date of Service: 02/19/211933 Report #: [id number] THIS REPORT FOR: //name// [facility] ED Test Date: 2021-02-19 Test Time: 19:34:41 Pat Name: YARELIS WHALEY Department: Room: [facility] Gender: M Magento Web Developer: ARSH : 1965 Requested By: Yvonne Harding Order Number: [id number] MD: Carl Santiago Measurements Intervals [place] Rate: 122 P: 82 IA: 170 QRS: 218 QRSD: 92 T: 67 QT: 316 QTc: 451 Interpretive Statements Sinus tachycardia Consider right atrial enlargement RVH with secondary repolarization abnrm Compared to ECG 08/05/2020 23:39:58 No significant changes noted Electronically Signed On 02-20-2021 9:06:37 VICE PRESIDENT OF NURSING by Carl Santiago [email or web address] <ELECTRONICALLY SIGNED> By: Carl Santiago MD, FACC 02/20/21905 33 33 Carl Santiago MD, FAC /EPI
[2021-02-20] MEDS ORDERED: DULERA 200 MCG/13 GM INH (09:40)
[2021-02-20] MEDS ORDERED: DOXYCYCLINE 10100 M2 PO (09:41)
[2021-02-20] MEDS ORDERED: PREDNISONE 20 M20 MG PO (09:45)
[2021-02-20] MEDS ORDERED: COSOPT OCUMETER10 M1 INTRAOCULR (09:47)
[2021-02-20] MEDS ORDERED: VYZULTA5 ML LT. EYE (09:48)
[2021-02-20] MEDS ORDERED: VENTOLIN HFA 1818 GM INH (09:50)
--- NOTE | 2021-02-20 13:34 | NUR ---
ADMISSION DONE IS ED A BOARDED PATIENT. HEAD TO TOE WILL NEED TO BE COMPLETED BY THE FLOOR NURSE ON TRANSFER. ED WILL CONTINUE TO CHART VITALS AND REASSESSMENTS IN THEIR SYSTEM UNTIL THEN.
--- NOTE | 2021-02-20 15:55 | NUR ---
PT'S HOME MED'S, DULERA, AND 2 EYE GTTS TAKEN TO PHARMACY TO GET TAGGED SO WE CAN USE THEM HERE WE DON'T CARRY THESE IN OUR PHARMACY. INFORMED THEM PT BEING TAKEN TO HIS ROOM 102 AT THIS TIME.
--- NOTE | 2021-02-20 16:07 | NUR ---
CM COMPLETED AN ASSESSMENT WITH PT TO DISCUSS HOME LIFE AND DISPO. PT LIVES WITH HIS MOTHER, MARSHA, WHO WAS AT BEDSIDE. PT IS INDEPENDENT WITH ADLS. PT DENIES HH OR SNF. PT HAS HOME O2 AT 5-6L PRN. CM TO CONT TO FOLLOW.
--- NOTE | 2021-02-20 17:56 | NUR ---
Pt arrived to unit at 1605, upon assessment pt was c/o throat itching & felt as though his throat was "closing up." Pts face was flushed, had some swelling of his tongue. RN gave 25mg IV benadryl and paged Dr. Delcid. Order to give another 25mg IV benadryl and epipen if pt worsened. When RN administered second dose of benadryl pt had audible wheezes in his upper airway and had increased work of breathing. Epipen administered and Dr. Delcid updated. VSS. Pt remains on 4L NC with O2 sats >91% and HR 103. No further orders from physician. Benzonatate added as allergy and removed from JUN. Will continue to assess for need of further intervention.
[2021-02-21] VITALS (7 sets, daily range): BP systolic 113–151; BP diastolic 62–93
--- NOTE | 2021-02-21 06:31 | NUR ---
Alert and oriented x 4. Vitals are stable. Monitor has been SR to ST this shift. O2 has been 94-96% with O2 at 4L n/c. He did desat at 0100 or 0200 but was easily awakened. He had ambien at 0030, which most likely led to his desaturation. But he did go back into 90's when awakened. He does have wheezes in his lungs and some fine crackles in lower lobes. He has not had any discomfort.
[2021-02-21 10:32] LABS: HEMATOCRIT 45.9 % (42.0-52.0); HEMOGLOBIN 15.1 gm/dL (14.0-18.0); MCH 30.5 pg (26.0-34.0); MCV 92.4 fL (80.0-100.0); MPV 8.2 fl. (7.2-11.1); RBC 4.97 mil/uL (4.50-6.00); RDW-CV 13.9 % (10.5-14.5); WBC 9.4 thou/uL (4.0-11.0)
[2021-02-21 10:36] LABS: CALCIUM 8.9 mg/dL (8.5-10.1); CREATININE 0.8 mg/dL (0.6-1.3); POTASSIUM 4.5 mmol/L (3.5-5.1)
--- NOTE | 2021-02-21 16:02 | NUR ---
MD was informed of heart rate with activity. HR 130-135 with activiity.
[2021-02-22 04:00] VITALS: BP 139/92
[2021-02-22 04:25] LABS: HEMATOCRIT 45.5 % (42.0-52.0); HEMOGLOBIN 14.9 gm/dL (14.0-18.0); MCH 30.1 pg (26.0-34.0); MCHC 32.8 g/dL (28.0-37.0); MCV 91.7 fL (80.0-100.0); RBC 4.96 mil/uL (4.50-6.00); RDW-CV 13.9 % (10.5-14.5); WBC 15.4 thou/uL (4.0-11.0)
[2021-02-22 04:45] LABS: CALCIUM 8.6 mg/dL (8.5-10.1); CREATININE 0.7 mg/dL (0.6-1.3); MAGNESIUM 2.3 mg/dL (1.8-2.4); POTASSIUM 4.7 mmol/L (3.5-5.1)
--- NOTE | 2021-02-22 06:26 | NUR ---
pt resting in bed. up to bathroom independently, remains free from injury. pain managed with [place] and anxiety with xanax. vitals wnl. pt continues to have non productive cough and exhale wheezing. continues on 4L O2.
[2021-02-22 08:45] VITALS: BP 132/83
[2021-02-22 12:30] VITALS: BP 124/84
[2021-02-22 16:15] VITALS: BP 130/89
[2021-02-22 16:42] VITALS: BP 129/84
[2021-02-22 19:55] VITALS: BP 128/72
[2021-02-23 00:09] VITALS: BP 134/85
[2021-02-23 04:10] LABS: HEMATOCRIT 47.4 % (42.0-52.0); HEMOGLOBIN 15.1 gm/dL (14.0-18.0); MCH 29.4 pg (26.0-34.0); MCHC 31.8 g/dL (28.0-37.0); MCV 92.6 fL (80.0-100.0); MPV 8.1 fl. (7.2-11.1); RBC 5.12 mil/uL (4.50-6.00); RDW-CV 14.2 % (10.5-14.5); WBC 19.2 thou/uL (4.0-11.0)
[2021-02-23 04:19] LABS: CALCIUM 8.2 mg/dL (8.5-10.1); CREATININE 0.7 mg/dL (0.6-1.3); POTASSIUM 4.4 mmol/L (3.5-5.1)
[2021-02-23 04:31] VITALS: BP 138/99
--- NOTE | 2021-02-23 06:12 | NUR ---
pt did not rest well, pt continue to have coughing fits. robutussin given with no relieve, will call dr to try to change medication back to mucinex. remains free from injury. pain managed with norco. xanax given as well. vitals wnl. continue on home oxygen dose of 4L.
[2021-02-23 09:00] VITALS: BP 147/99
[2021-02-23] MEDS ORDERED: PREDNISONE 10 M10 MG PO (14:28)
[2021-02-23] MEDS ORDERED: AZITHROMYCIN 2250 MG PO (14:28)
[2021-02-23] MEDS ORDERED: NORVASC5 MG PO (14:29)
[2021-02-23 14:51] VITALS: BP 147/99
--- NOTE | 2021-02-25 08:10 | EKG ---
[place] [address] ELECTROCARDIOGRAM REPORT Name: YARELIS WHALEY Room: [address] DIS IN M.R.#: [id number] Admission: 02/20/21 Attend Phys: Glen Delcid Discharge: 02/23/21 Date of : 67 Date of Service: 02/22/21 1547 Report #: [id number] THIS REPORT FOR: //name// [facility] Test Date: 2021-02-22 Test Time: 15:47:40 Pat Name: YARELIS WHALEY Department: Room: [address] Gender: M [employer]: SAMREEN : 1965 Requested By: Glen Delcid Order Number: [id number] Reading MD: Carl Santiago Measurements Intervals [place] Rate: 108 P: 78 OR: 155 QRS: 96 QRSD: 91 T: 61 QT: 335 QTc: 449 Interpretive Statements Sinus tachycardia Biatrial enlargement Incomplete right bundle branch block Nonspecific T abnormalities, anterior leads Baseline wander in lead(s) V2 Compared to ECG 02/19/2021 19:34:41 T-wave abnormality now present Electronically Signed On 02-25-2021 8:10:15 HOST/HOSTESS GROUND by Carl Santiago [email or web address] <ELECTRONICALLY SIGNED> By: Carl Santiago MD, FACC 02/25/21 0810 1547 1547 Carl Santiago MD, FACC /EPI
== END 2021-02-23 15:30 | disposition home or self-care (01) | DRG 190 ==
LOC: M.ERS 19:12 → M.TBA-ER 22:47 → M.ORTHSURG 02-20 16:02
PROVIDERS: Personal Emergency Response Attendant; ADMIT Internal Medicine; ATTEND Internal Medicine
DX: J44.1 Chronic obstructive pulmonary disease with (acute) exacerbation (principal); J96.01 Acute respiratory failure with hypoxia; T88.6XXA Anaphylactic reaction due to adverse effect of correct drug or medicament properly administered, initial encounter; Z20.822 Contact with and (suspected) exposure to COVID-19; T48.3X5A Adverse effect of antitussives, initial encounter; Z88.0 Allergy status to penicillin; Y92.89 Other specified places as the place of occurrence of the external cause